=== PATIENT | female | born 1935 | race Caucasian/White ===

== ENCOUNTER 2017-03-04 12:31 | Inpatient (IN) | payer MEDICARE, BC ==
[2017-03-04] MEDS ORDERED: Sodium Chloride 0.9% 10 ML Syringe FLUSH PRN (14:27)
[2017-03-04] MEDS: Furosemide 40 MG/4 ML VIAL IVPUSH SCH (15:47)
[2017-03-04] MEDS ORDERED: Levofloxacin/Dextrose 5%-Water 250 MG in Premix Bag 1 BAG IV ONE (16:30)
[2017-03-04] MEDS: Magnesium Chloride 64 MG Tab.ER PO SCH (17:09)
[2017-03-04] MEDS: Lisinopril 5 MG Tab PO SCH (17:09)
[2017-03-04] MEDS: traZODone 50 MG Tab PO SCH (19:40)
[2017-03-04] MEDS: Montelukast 10 MG Tab PO SCH (19:41)
[2017-03-04] MEDS: TEMAZEPAM 15 MG PO SCH (19:41)
[2017-03-04] MEDS: Mirtazapine 15 MG Tab PO SCH (19:41)
[2017-03-04] MEDS ORDERED: METOCLOPRAMIDE PO SCH (20:00)
[2017-03-04] MEDS ORDERED: Enoxaparin 30 MG/0.3 ML Syringe SUBCUT SCH (20:00)
[2017-03-05] MEDS: Diltiazem 180 MG Cap.CD PO SCH (07:33)
[2017-03-05] MEDS: Potassium Chloride 10 MEQ Tab.ER PO SCH (07:33)
[2017-03-05] MEDS: Magnesium Chloride 64 MG Tab.ER PO SCH ×2 (07:36→17:27)
[2017-03-05] MEDS: Furosemide 40 MG/4 ML VIAL IVPUSH SCH ×2 (07:37→20:11)
[2017-03-05] MEDS: Aspirin 325 MG Tab.EC PO SCH (07:37)
[2017-03-05] MEDS: Lisinopril 5 MG Tab PO SCH (07:37)
[2017-03-05] MEDS: Ferrous Sulfate 324 MG Tab.EC PO SCH (07:37)
[2017-03-05] MEDS ORDERED: Non-Formulary Medication 1 Each (Magnesium Chloride [Slow-Mag] 71.5 MG) PO SCH (08:00)
[2017-03-05] MEDS ORDERED: Iopamidol 755 Mg/ML 100 ML Bottle IVPUSH ONE (11:15)
--- NOTE | 2017-03-05 12:45 | PN ---
DATE: 03/05/2017 S: Josue was admitted yesterday with a diagnosis of CHF. Her BNP came back elevated at over 8000. Lab work was for the most part reassuring other than an elevated D-dimer. She has been a little hypoxic and is requiring O2. Right leg is definitely more swollen than the left and we are going to do a CT of her chest to rule out PE. Chest x-ray did confirm CHF. She is a chronic AFib patient who has elected not to be on Coumadin after she had a hematoma in her leg. Since admission, she has diuresed about 5 or 6 pounds. She is feeling well. She was only on a calcium channel julita at the time of her admission. O: GENERAL: She is pleasant and cooperative. Appears in no distress. NECK: Supple. Veins are flat. LUNGS: Sounds are diminished again in the bases with signs of failure. CARDIAC: Tones are irregular, consistent with atrial fibrillation. ABDOMEN: Soft. She has improvement in her edema. ASSESSMENT: CONGESTIVE HEART FAILURE EXACERBATION. P: We do have an echocardiogram ordered, started her on IV Lasix, I have put her on a low-dose JESS inhibitor. She should be started on Coreg and I will wait to see how her pressures respond in the next day. Concerned about her elevated D-dimer and shortness of breath, I suspect most of her symptoms are purely from CHF but I am going to get a PE scan to rule out pulmonary emboli. If that is negative, I will duplex her lower extremities just to rule out DVT as well. For now, she is on only DVT prophylaxis with Lovenox. She did have a UTI on admit and started on IV Levaquin as well. No other changes at this time. We will follow up her panel-8 and electrolytes tomorrow with lab. BRANDIN/KADIE /[id number]
[2017-03-05] MEDS: Acetaminophen 325 MG Tab PO PRN ×2 (14:58→20:22)
[2017-03-05] MEDS ORDERED: Enoxaparin 40 MG/0.4 ML Syringe SUBCUT ONE (15:00)
[2017-03-05] MEDS ORDERED: Enoxaparin 30 MG/0.3 ML Syringe SUBCUT ONE (15:00)
[2017-03-05] MEDS ORDERED: Enoxaparin 30 MG/0.3 ML Syringe SUBCUT SCH ×2 (20:00)
[2017-03-05] MEDS: Levofloxacin/Dextrose 5%-Water 250 MG in Premix Bag 1 BAG IV SCH (20:04)
[2017-03-05] MEDS: Mirtazapine 15 MG Tab PO SCH (20:06)
[2017-03-05] MEDS: Montelukast 10 MG Tab PO SCH (20:07)
[2017-03-05] MEDS: traZODone 50 MG Tab PO SCH (20:07)
[2017-03-05] MEDS: TEMAZEPAM 15 MG PO SCH (20:11)
[2017-03-06] MEDS: Enoxaparin 40 MG/0.4 ML Syringe SUBCUT SCH ×2 (08:12→19:59)
[2017-03-06] MEDS: Furosemide 40 MG/4 ML VIAL IVPUSH SCH ×2 (08:12→19:56)
[2017-03-06] MEDS: Aspirin 325 MG Tab.EC PO SCH (08:12)
[2017-03-06] MEDS: Enoxaparin 30 MG/0.3 ML Syringe SUBCUT SCH ×2 (08:12→19:59)
[2017-03-06] MEDS: Magnesium Chloride 64 MG Tab.ER PO SCH ×2 (08:13→17:41)
[2017-03-06] MEDS: Potassium Chloride 10 MEQ Tab.ER PO SCH (08:14)
[2017-03-06] MEDS: Diltiazem 180 MG Cap.CD PO SCH (08:15)
[2017-03-06] MEDS: Lisinopril 5 MG Tab PO SCH (08:17)
[2017-03-06] MEDS: Ferrous Sulfate 324 MG Tab.EC PO SCH (08:17)
--- NOTE | 2017-03-06 13:51 | PN ---
DATE: 03/06/2017 S: Josue was admitted for CHF. She also has some clot done in her peroneals of her right lower leg, which is improving. Originally, she was down about 5 or 6 pounds when she was admitted and today it shows her up a couple of kilograms again, and I am not sure why. She had good urine outputs, and her legs look a lot better. She is feeling like she is breathing much easier. Echocardiogram was done today, and I do not have those reports. We have started her on a low- dose JESS and then go from 5 to 10 on her lisinopril. She remains on IV Lasix. At this point, I have yet to start her on a low-dose beta julita. She is on rate control with Cardizem and tomorrow, we will plan on switching her to 3.125 b.i.d. of Cardizem, and assuming the rate is stable, we will ultimately take her off the Cardizem. O: GENERAL: Today, she is a pleasant, alert, and cooperative. Looks stronger, much more pleasant and cooperative. HEENT: Remains benign. NECK: She does not have any resting JVD. LUNGS: Lung sounds remain diminished with some basilar crackles, albeit improved. CARDIAC: Tones are irregular. ABDOMEN: Soft. EXTREMITIES: She has improvement in her edema bilaterally, little bit worse on the right compared to the left. ASSESSMENT: 1. ACUTE CONGESTIVE HEART FAILURE. 2. CHRONIC ATRIAL FIBRILLATION. 3. SUPERFICIAL THROMBOSIS, RIGHT LOWER EXTREMITY. 4. URINARY TRACT INFECTION, E. COLI. P: The patient will continue on appropriate therapy. Today, we will switch her to acute, also going to start physical therapy for some strengthening. We will initiate Coumadin tomorrow and monitor INRs appropriately. We will get her routine repeat panel-8, BMP, tomorrow as well. At this time, clinically, the patient looks very good. BRANDIN/KADIE /[id number]
[2017-03-06] MEDS ORDERED: Warfarin 5 MG Tab PO SCH (14:15)
[2017-03-06] MEDS: Acetaminophen 325 MG Tab PO PRN ×2 (14:57→22:44)
[2017-03-06] MEDS: Mirtazapine 15 MG Tab PO SCH (19:59)
[2017-03-06] MEDS: TEMAZEPAM 15 MG PO SCH (19:59)
[2017-03-06] MEDS: Montelukast 10 MG Tab PO SCH (19:59)
[2017-03-06] MEDS: traZODone 50 MG Tab PO SCH (19:59)
[2017-03-06] MEDS: Levofloxacin/Dextrose 5%-Water 250 MG in Premix Bag 1 BAG IV SCH (20:02)
[2017-03-07] MEDS: Pantoprazole 40 MG Tab.CR PO SCH (06:22)
[2017-03-07] MEDS: Acetaminophen 325 MG Tab PO PRN ×2 (07:49→19:21)
[2017-03-07] MEDS: Lisinopril 10 MG Tab PO SCH (07:50)
[2017-03-07] MEDS: Potassium Chloride 10 MEQ Tab.ER PO SCH (07:50)
[2017-03-07] MEDS: Magnesium Chloride 64 MG Tab.ER PO SCH ×2 (07:50→18:04)
[2017-03-07] MEDS: Ferrous Sulfate 324 MG Tab.EC PO SCH (07:50)
[2017-03-07] MEDS: Diltiazem 180 MG Cap.CD PO SCH (07:52)
[2017-03-07] MEDS: Furosemide 40 MG/4 ML VIAL IVPUSH SCH (07:53)
[2017-03-07] MEDS: Enoxaparin 30 MG/0.3 ML Syringe SUBCUT SCH ×2 (07:57→19:23)
[2017-03-07] MEDS: Enoxaparin 40 MG/0.4 ML Syringe SUBCUT SCH ×2 (07:58→19:23)
[2017-03-07 08:01] LABS: CHLORIDE,CL 98 mEq/L (98-106); SODIUM,NA 138 mEq/L (136-145)
[2017-03-07] MEDS: Carvedilol 3.125 MG Tab PO SCH ×2 (09:57→19:22)
--- NOTE | 2017-03-07 10:13 | PN ---
DATE: 03/07/2017 S: Josue is an 81-year-old female who was admitted for CHF on 03/04/2017. She had a blood clot also in peroneals of the right lower leg. She was also determined to have a UTI as well. She has been improving quite well. Initial weight on admission was 172 pounds with a current weight of 163 pounds. She has been having a good urine output with much improvement in regard to edema in the lower extremities as well. She states she feels like she is gradually improving. She recently has had an echocardiogram done yesterday. She has been on IV Lasix during this time, 40 mg twice a day. O: VITAL SIGNS: Blood pressure 136/84, O2 is 92% on room air, respiratory rate is 16, and temp is 97.2 with a pulse of 60. GENERAL: A pleasant cooperative female. She is resting comfortably. Does not appear to be in any distress at this point in time. She is cooperative and answering all questions appropriately. HEENT: Grossly unremarkable. LUNGS: Fairly clear to auscultation. She did have some bibasilar crackles, however, no wheezing or rhonchi noted. CARDIAC: Regular rate. Irregular rhythm. No murmur is noted. ABDOMEN: Soft. Bowel sounds are present. Normoactive. No organomegaly. No guarding or rigidity. EXTREMITIES: Scant pitting pedal edema noted in the right ankle/foot with minimal swelling noted in the left lower extremity, much improved. ASSESSMENT: 1. ACUTE CONGESTIVE HEART FAILURE. 2. CHRONIC ATRIAL FIBRILLATION. 3. SUPERFICIAL THROMBOSIS OF RIGHT LOWER EXTREMITY. 4. URINARY TRACT INFECTION WITH E. COLI. P: We will go ahead and start Coreg 3.125 mg twice a day at this point in time. We will also discontinue her IV Lasix and start her on 40 mg orally daily. She is having daily INR secondary to being initiated on Coumadin use. We will closely monitor her blood pressures as well make sure she is tolerating the Coreg with the Cardizem. I will repeat her basic metabolic panel and magnesium in the morning as her laboratory data this morning did show a potassium to be down to 3.4 from 3.8 and creatinine is 1.1 which has been stable, proBNP was 3022 today down from 8000 on 03/04/2017. I did explain to Josue current treatment plan. She did verbalize complete understanding. LUDWIG/KADIE /[id number]
[2017-03-07] MEDS ORDERED: Warfarin 5 MG Tab PO SCH (12:00)
[2017-03-07] MEDS: Warfarin 5 MG Tab PO SCH (12:33)
[2017-03-07] MEDS: Montelukast 10 MG Tab PO SCH (19:22)
[2017-03-07] MEDS: traZODone 50 MG Tab PO SCH (19:22)
[2017-03-07] MEDS: TEMAZEPAM 15 MG PO SCH (19:22)
[2017-03-07] MEDS: Mirtazapine 15 MG Tab PO SCH (19:23)
[2017-03-07] MEDS: Levofloxacin/Dextrose 5%-Water 250 MG in Premix Bag 1 BAG IV SCH (19:23)
[2017-03-08] MEDS: Acetaminophen 325 MG Tab PO PRN ×2 (05:32→19:58)
[2017-03-08] MEDS: Pantoprazole 40 MG Tab.CR PO SCH (06:45)
[2017-03-08] MEDS: Carvedilol 3.125 MG Tab PO SCH ×2 (08:24→19:56)
[2017-03-08] MEDS: Furosemide 40 MG Tab PO SCH (08:25)
[2017-03-08] MEDS: Magnesium Chloride 64 MG Tab.ER PO SCH ×2 (08:25→16:57)
[2017-03-08] MEDS: Ferrous Sulfate 324 MG Tab.EC PO SCH (08:25)
[2017-03-08] MEDS: Potassium Chloride 10 MEQ Tab.ER PO SCH (08:25)
[2017-03-08] MEDS: Lisinopril 10 MG Tab PO SCH (08:25)
[2017-03-08] MEDS: Diltiazem 180 MG Cap.CD PO SCH (08:25)
[2017-03-08] MEDS: Enoxaparin 30 MG/0.3 ML Syringe SUBCUT SCH ×2 (08:26→19:57)
[2017-03-08] MEDS: Enoxaparin 40 MG/0.4 ML Syringe SUBCUT SCH ×2 (08:26→19:57)
--- NOTE | 2017-03-08 10:40 | PCM.PN ---
- General Info Date of Service: 03/08/17 (Patient sitting up in chair with eyes closed resting , Easily arousable. Denies any SOB or pain at this time. Bilateral breath sound essentially clear but deminished. 2+ edema noted of lower extremeties. Patient being treated o rCF, and DVT. No distress noted at this time, will continue to montor closely) Admission Dx/Problem (Free Text): CHF, DVT,SOB Functional Status: Reports: pain controlled - Review of Systems General: Reports: No Symptoms HEENT: Reports: no symptoms Pulmonary: Reports: other Cardiovascular: Reports: No Symptoms Gastrointestinal: Reports: No symptoms Genitourinary: Reports: no symptoms Musculoskeletal: Reports: no symptoms Skin: Reports: no symptoms Neurological: Reports: No Symptoms Psychiatric: Reports: no symptoms Systems Review Comment:: Has significant lower extremity edema. - Patient Data Vitals - most recent: Last Vital Signs Temp 96.1 F 03/08/17 04:00 Pulse 89 03/08/17 08:24 Resp 18 03/08/17 04:00 BP 138/90 03/08/17 08:25 Pulse Ox 92 L 03/08/17 04:00 Weight - most recent: 165 lb 9.6 oz I&O - last 24 hours: Intake & Output 03/07/17 03/08/17 03/08/17 22:59 06:59 14:59 Intake Total 750 1050 Output Total 1900 750 Balance -1150 300 Lab Results last 24 hrs: Laboratory Results - last 24 hr 03/08/17 03/08/17 Range/Units 07:25 07:25 PT 11.0 (9.7-12.3) SEC INR 1.02 (0.92-1.18) Sodium 136 (136-145) mEq/L Potassium 3.4 L (3.5-5.0) mEq/L Chloride 97 L (98-106) mEq/L Carbon Dioxide 34 H (21-32) mmol/L BUN 19 H (7-18) mg/dL Creatinine 1.0 (0.6-1.0) mg/dL Est Cr Clr Drug Dosing 42.00 mL/min Estimated GFR (MDRD) 53 L (>=60) mL/min Glucose 117 H (75-99) mg/dL Calcium 9.0 (8.4-10.1) mg/dL Magnesium 1.5 L (1.8-2.4) mg/dL Med Orders - Current: Current Medications Acetaminophen (Tylenol) 650 mg PO Q4H PRN PRN Reason: Pain (Mild 1-3)/fever Last Admin: 03/08/17 05:32 Dose: 650 mg Carvedilol (Coreg) 3.125 mg PO BID [facility] Last Admin: 03/08/17 08:24 Dose: 3.125 mg Diltiazem HCl (Cardizem Cd) 180 mg PO DAILY [facility] Last Admin: 03/08/17 08:25 Dose: 180 mg Enoxaparin Sodium (Lovenox) 30 mg SUBCUT Q12H [facility] Last Admin: 03/08/17 08:26 Dose: 30 mg Enoxaparin Sodium (Lovenox) 40 mg SUBCUT Q12H [facility] Last Admin: 03/08/17 08:26 Dose: 40 mg Ferrous Sulfate (Ferrous Sulfate) 324 mg PO DAILY [facility] Last Admin: 03/08/17 08:25 Dose: 324 mg Furosemide (Lasix) 40 mg PO DAILY [facility] Last Admin: 03/08/17 08:25 Dose: 40 mg Levofloxacin/Dextrose 250 mg/ (Premix) 50 mls @ 50 mls/hr IV Q24H [facility] Last Admin: 03/07/17 19:23 Dose: 50 mls/hr Lisinopril (Prinivil) 10 mg PO DAILY [facility] Last Admin: 03/08/17 08:25 Dose: 10 mg Magnesium Chloride (Mag-64) 64 mg PO BIDMEALS [facility] Last Admin: 03/08/17 08:25 Dose: 64 mg Mirtazapine (Remeron) 15 mg PO BEDTIME [facility] Last Admin: 03/07/17 19:23 Dose: 15 mg Montelukast Sodium (Singulair) 10 mg PO BEDTIME [facility] Last Admin: 03/07/17 19:22 Dose: 10 mg Pt On Lovenox And Warfarin--Validate If Can Dc Lovenox 1 each .XX DAILY [facility] Pantoprazole Sodium (Protonix) 40 mg PO DAILY@0700 [facility] Last Admin: 03/08/17 06:45 Dose: 40 mg Potassium Chloride (Klor-Con 10) 20 meq PO DAILY [facility] Last Admin: 03/08/17 08:25 Dose: 20 meq Senna/Docusate Sodium (Senna Plus) 1 tab PO BID [facility] Last Admin: 03/08/17 08:25 Dose: 1 tab Sodium Chloride (Saline Flush) 10 ml FLUSH ASDIRECTED PRN PRN Reason: Keep Vein Open Temazepam (Restoril) 15 mg PO 2230 [facility] Trazodone HCl (Trazodone) 25 mg PO BEDTIME [facility] Last Admin: 03/07/17 19:22 Dose: 25 mg Warfarin Sodium (Coumadin) 5 mg PO DAILY@1200 [facility] Last Admin: 03/07/17 12:33 Dose: 5 mg Discontinued Medications Aspirin (Ecotrin) 325 mg PO DAILY [facility] Last Admin: 03/06/17 08:12 Dose: 325 mg Enoxaparin Sodium (Lovenox) 30 mg SUBCUT Q24H [facility] Last Admin: 03/04/17 19:40 Dose: 30 mg Enoxaparin Sodium (Lovenox) 80 mg SUBCUT BID [facility] Enoxaparin Sodium (Lovenox) 30 mg SUBCUT ONETIME ONE Stop: 03/05/17 15:01 Last Admin: 03/05/17 14:57 Dose: 30 mg Enoxaparin Sodium (Lovenox) 40 mg SUBCUT ONETIME ONE Stop: 03/05/17 15:01 Last Admin: 03/05/17 14:57 Dose: 40 mg Furosemide (Lasix) 40 mg IVPUSH BIDDIURETIC [facility] Last Admin: 03/05/17 07:37 Dose: 40 mg Furosemide (Lasix) 40 mg IVPUSH BID [facility] Last Admin: 03/07/17 07:53 Dose: 40 mg Levofloxacin/Dextrose 250 mg/ (Premix) 50 mls @ 50 mls/hr IV ONETIME ONE Stop: 03/04/17 17:29 Last Admin: 03/04/17 17:08 Dose: 50 mls/hr Iopamidol (Isovue-370 (76%)) 100 ml IVPUSH ONETIME ONE Stop: 03/05/17 11:16 Last Admin: 03/05/17 11:16 Dose: 100 ml Lisinopril (Prinivil) 5 mg PO DAILY [facility] Last Admin: 03/06/17 08:17 Dose: 5 mg Non-Formulary Medication (Metoclopramide [Reglan]) 10 tab PO BID [facility] Non-Formulary Medication (Magnesium Chloride [Slow-Mag]) 71.5 mg PO DAILY [facility] Temazepam (Restoril) 15 mg PO BEDTIME [facility] Last Admin: 03/07/17 19:22 Dose: 15 mg Warfarin Sodium (Coumadin) 5 mg PO DAILY@1200 [facility] - Problem List Review Problem List Initiated/Reviewed/Updated: Yes
[2017-03-08] MEDS: Warfarin 5 MG Tab PO SCH (11:51)
[2017-03-08] MEDS: Ondansetron 4 MG Tab.DIS PO PRN (12:18)
[2017-03-08] MEDS: Montelukast 10 MG Tab PO SCH (19:56)
[2017-03-08] MEDS: Mirtazapine 15 MG Tab PO SCH (19:57)
[2017-03-08] MEDS: traZODone 50 MG Tab PO SCH (19:57)
[2017-03-08] MEDS: Levofloxacin/Dextrose 5%-Water 250 MG in Premix Bag 1 BAG IV SCH (19:58)
[2017-03-08] MEDS: Temazepam 15 MG Cap PO SCH (22:40)
[2017-03-09] MEDS: Pantoprazole 40 MG Tab.CR PO SCH (06:37)
[2017-03-09] MEDS: Enoxaparin 30 MG/0.3 ML Syringe SUBCUT SCH ×2 (08:07→19:23)
[2017-03-09] MEDS: Enoxaparin 40 MG/0.4 ML Syringe SUBCUT SCH ×2 (08:07→19:23)
[2017-03-09] MEDS: Carvedilol 3.125 MG Tab PO SCH ×2 (08:08→19:21)
[2017-03-09] MEDS: Magnesium Chloride 64 MG Tab.ER PO SCH ×2 (08:08→17:43)
[2017-03-09] MEDS: Diltiazem 180 MG Cap.CD PO SCH (08:08)
[2017-03-09] MEDS: Potassium Chloride 10 MEQ Tab.ER PO SCH (08:08)
[2017-03-09] MEDS: Lisinopril 10 MG Tab PO SCH (08:09)
[2017-03-09] MEDS: Ferrous Sulfate 324 MG Tab.EC PO SCH (08:09)
[2017-03-09] MEDS: Furosemide 40 MG Tab PO SCH (08:09)
[2017-03-09] MEDS: [UNRECOGNIZED DRUG - REMARK] SCH (08:11)
[2017-03-09] MEDS: Ondansetron 4 MG Tab.DIS PO PRN (08:57)
--- NOTE | 2017-03-09 12:13 | PCM.PN ---
- General Info Date of Service: 03/09/17 Admission Dx/Problem (Free Text): chf Functional Status: Reports: pain controlled - Review of Systems General: Reports: No Symptoms HEENT: Reports: no symptoms Pulmonary: Reports: shortness of breath Cardiovascular: Reports: No Symptoms Gastrointestinal: Reports: No symptoms Musculoskeletal: Reports: no symptoms Skin: Reports: no symptoms Neurological: Reports: No Symptoms Psychiatric: Reports: no symptoms Systems Review Comment:: Sitting up in chair at this time. Denies pain, but has SOB with exertion. Labs are OK, vs stable no distress noted. Will continue to monitor closely. - Patient Data Vitals - most recent: Last Vital Signs Temp 98.1 F 03/09/17 11:51 Pulse 96 03/09/17 11:51 Resp 16 03/09/17 11:51 BP 101/50 L 03/09/17 11:51 Pulse Ox 94 L 03/09/17 11:51 Weight - most recent: 162 lb 9.6 oz I&O - last 24 hours: Intake & Output 03/08/17 03/09/17 03/09/17 22:59 06:59 14:59 Intake Total 300 300 Output Total 600 425 Balance -300 -425 300 Lab Results last 24 hrs: Laboratory Results - last 24 hr 03/09/17 03/09/17 Range/Units 07:15 07:15 PT 12.4 H (9.7-12.3) SEC INR 1.14 (0.92-1.18) Sodium 135 L (136-145) mEq/L Potassium 4.2 D (3.5-5.0) mEq/L Chloride 97 L (98-106) mEq/L Carbon Dioxide 35 H (21-32) mmol/L BUN 18 (7-18) mg/dL Creatinine 1.0 (0.6-1.0) mg/dL Est Cr Clr Drug Dosing 42.00 mL/min Estimated GFR (MDRD) 53 L (>=60) mL/min Glucose 115 H (75-99) mg/dL Calcium 9.0 (8.4-10.1) mg/dL Med Orders - Current: Current Medications Acetaminophen (Tylenol) 650 mg PO Q4H PRN PRN Reason: Pain (Mild 1-3)/fever Last Admin: 03/08/17 19:58 Dose: 650 mg Carvedilol (Coreg) 3.125 mg PO BID [facility] Last Admin: 03/09/17 08:08 Dose: 3.125 mg Diltiazem HCl (Cardizem Cd) 180 mg PO DAILY [facility] Last Admin: 03/09/17 08:08 Dose: 180 mg Enoxaparin Sodium (Lovenox) 30 mg SUBCUT Q12H [facility] Last Admin: 03/09/17 08:07 Dose: 30 mg Enoxaparin Sodium (Lovenox) 40 mg SUBCUT Q12H [facility] Last Admin: 03/09/17 08:07 Dose: 40 mg Ferrous Sulfate (Ferrous Sulfate) 324 mg PO DAILY [facility] Last Admin: 03/09/17 08:09 Dose: 324 mg Furosemide (Lasix) 40 mg PO DAILY [facility] Last Admin: 03/09/17 08:09 Dose: 40 mg Levofloxacin/Dextrose 250 mg/ (Premix) 50 mls @ 50 mls/hr IV Q24H [facility] Last Admin: 03/08/17 19:58 Dose: 50 mls/hr Lisinopril (Prinivil) 10 mg PO DAILY [facility] Last Admin: 03/09/17 08:09 Dose: 10 mg Magnesium Chloride (Mag-64) 64 mg PO BIDMEALS [facility] Last Admin: 03/09/17 08:08 Dose: 64 mg Mirtazapine (Remeron) 15 mg PO BEDTIME [facility] Last Admin: 03/08/17 19:57 Dose: 15 mg Montelukast Sodium (Singulair) 10 mg PO BEDTIME [facility] Last Admin: 03/08/17 19:56 Dose: 10 mg Pt On Lovenox And Warfarin--Validate If Can Dc Lovenox 1 each .XX DAILY [facility] Last Admin: 03/09/17 08:11 Dose: Not Given Ondansetron HCl (Zofran Odt) 4 mg PO Q4H PRN PRN Reason: Nausea/Vomiting Last Admin: 03/09/17 08:57 Dose: 4 mg Pantoprazole Sodium (Protonix) 40 mg PO DAILY@0700 [facility] Last Admin: 03/09/17 06:37 Dose: 40 mg Potassium Chloride (Klor-Con 10) 20 meq PO DAILY [facility] Last Admin: 03/09/17 08:08 Dose: 20 meq Senna/Docusate Sodium (Senna Plus) 1 tab PO BID [facility] Last Admin: 03/09/17 08:08 Dose: 1 tab Sodium Chloride (Saline Flush) 10 ml FLUSH ASDIRECTED PRN PRN Reason: Keep Vein Open Temazepam (Restoril) 15 mg PO 2230 [facility] Last Admin: 03/08/17 22:40 Dose: 15 mg Trazodone HCl (Trazodone) 25 mg PO BEDTIME [facility] Last Admin: 03/08/17 19:57 Dose: 25 mg Warfarin Sodium (Coumadin) 5 mg PO DAILY@1200 [facility] Last Admin: 03/08/17 11:51 Dose: 5 mg Discontinued Medications Aspirin (Ecotrin) 325 mg PO DAILY [facility] Last Admin: 03/06/17 08:12 Dose: 325 mg Enoxaparin Sodium (Lovenox) 30 mg SUBCUT Q24H [facility] Last Admin: 03/04/17 19:40 Dose: 30 mg Enoxaparin Sodium (Lovenox) 80 mg SUBCUT BID [facility] Enoxaparin Sodium (Lovenox) 30 mg SUBCUT ONETIME ONE Stop: 03/05/17 15:01 Last Admin: 03/05/17 14:57 Dose: 30 mg Enoxaparin Sodium (Lovenox) 40 mg SUBCUT ONETIME ONE Stop: 03/05/17 15:01 Last Admin: 03/05/17 14:57 Dose: 40 mg Furosemide (Lasix) 40 mg IVPUSH BIDDIURETIC [facility] Last Admin: 03/05/17 07:37 Dose: 40 mg Furosemide (Lasix) 40 mg IVPUSH BID [facility] Last Admin: 03/07/17 07:53 Dose: 40 mg Levofloxacin/Dextrose 250 mg/ (Premix) 50 mls @ 50 mls/hr IV ONETIME ONE Stop: 03/04/17 17:29 Last Admin: 03/04/17 17:08 Dose: 50 mls/hr Iopamidol (Isovue-370 (76%)) 100 ml IVPUSH ONETIME ONE Stop: 03/05/17 11:16 Last Admin: 03/05/17 11:16 Dose: 100 ml Lisinopril (Prinivil) 5 mg PO DAILY [facility] Last Admin: 03/06/17 08:17 Dose: 5 mg Non-Formulary Medication (Metoclopramide [Reglan]) 10 tab PO BID [facility] Non-Formulary Medication (Magnesium Chloride [Slow-Mag]) 71.5 mg PO DAILY [facility] Temazepam (Restoril) 15 mg PO BEDTIME [facility] Last Admin: 03/07/17 19:22 Dose: 15 mg Warfarin Sodium (Coumadin) 5 mg PO DAILY@1200 [facility] - Problem List Review Problem List Initiated/Reviewed/Updated: Yes - My Orders Last 24 Hours: My Active Orders 03/08/17 12:12 Ondansetron [Zofran ODT] 4 mg PO Q4H PRN 03/11/17 05:11 BMP [BASIC METABOLIC PANEL,BMP] [CHEM] AM
[2017-03-09] MEDS: Warfarin 5 MG Tab PO SCH (12:17)
[2017-03-09] MEDS: Acetaminophen 325 MG Tab PO PRN (17:45)
[2017-03-09] MEDS: Mirtazapine 15 MG Tab PO SCH (19:21)
[2017-03-09] MEDS: traZODone 50 MG Tab PO SCH (19:22)
[2017-03-09] MEDS: Montelukast 10 MG Tab PO SCH (19:22)
[2017-03-09] MEDS: Levofloxacin/Dextrose 5%-Water 250 MG in Premix Bag 1 BAG IV SCH (19:23)
[2017-03-09] MEDS: Temazepam 15 MG Cap PO SCH (22:45)
[2017-03-10] MEDS: Pantoprazole 40 MG Tab.CR PO SCH (06:57)
[2017-03-10] MEDS: Ferrous Sulfate 324 MG Tab.EC PO SCH (07:51)
[2017-03-10] MEDS: Lisinopril 10 MG Tab PO SCH (07:51)
[2017-03-10] MEDS: Furosemide 40 MG Tab PO SCH (07:51)
[2017-03-10] MEDS: Carvedilol 3.125 MG Tab PO SCH (07:51)
[2017-03-10] MEDS: Diltiazem 180 MG Cap.CD PO SCH (07:51)
[2017-03-10] MEDS: Magnesium Chloride 64 MG Tab.ER PO SCH (07:51)
[2017-03-10] MEDS: Potassium Chloride 10 MEQ Tab.ER PO SCH (07:51)
[2017-03-10 07:52] VITALS: BP 124/79
[2017-03-10] MEDS: Acetaminophen 325 MG Tab PO PRN (07:55)
[2017-03-10] MEDS: [UNRECOGNIZED DRUG - REMARK] SCH (08:44)
[2017-03-10] MEDS: Enoxaparin 30 MG/0.3 ML Syringe SUBCUT SCH (08:48)
[2017-03-10] MEDS: Enoxaparin 40 MG/0.4 ML Syringe SUBCUT SCH (08:48)
--- NOTE | 2017-03-10 10:40 | PCM.DCSUM1 ---
Discharge Summary - Hospital Course Free Text/Narrative:: Patient to be discharged from inpatient care and [facility] PT eval and treatment for strengthening. - Discharge Data Discharge Date: 03/10/17 Discharge Disposition: DC/Tfer W/I Hosp To [facility] 62 Condition: Good - Patient Summary/Data Consults: Consultations 03/06/17 12:32 Consult to Physical Therapy [PT Evaluation and Treatment] [CONS] Routine - Discharge Plan Home Medications: Home Meds Aspirin 325 mg PO DAILY 01/09/15 [History] Ca Carbonate/Vitamin D3/Vit K [Calcium + D Soft Chewable Tab] 2 tab PO DAILY [History] Mirtazapine [Remeron] 15 mg PO BEDTIME 01/09/15 [History] Multivitamins [Tab-A-Tigist] 1 tab PO DAILY 01/09/15 [History] Naproxen Sodium [Aleve] 2 tab PO BID PRN 01/09/15 [History] Sennosides/Docusate Sodium [Cvs Stool Softener-Laxative Tb] 100 mg PO BID [History] Metoclopramide [Reglan] 10 tab PO BID 06/02/15 [History] Diltiazem [Cardizem CD] 180 mg PO DAILY cap.cd 01/21/16 [Rx] Ferrous Sulfate 325 mg PO DAILY 10/09/16 [History] Temazepam [Restoril] 15 mg PO BEDTIME 10/09/16 [History] traZODone 25 mg PO BEDTIME 10/09/16 [History] Cranberry 400 mg PO BID 03/04/17 [History] Fish Oil/DHA/EPA [Fish Oil 1,200 MG] 1 each PO BID 03/04/17 [History] Magnesium Chloride [Slow-Mag] 71.5 mg PO DAILY 03/04/17 [History] Montelukast [Singulair] 10 mg PO BEDTIME 03/04/17 [History] Potassium Chloride [Klor-Con 10] 20 meq PO DAILY 03/04/17 [History] Torsemide 20 mg PO 03/04/17 [History] - Patient Data Vitals - Most Recent: Last Vital Signs Temp 97.0 F 03/10/17 08:00 Pulse 88 03/10/17 08:00 Resp 20 03/10/17 08:00 BP 124/79 03/10/17 08:00 Pulse Ox 91 L 03/10/17 08:00 Weight - Most Recent: 165 lb 1.6 oz I&O - Last 24 hours: Intake & Output 03/09/17 03/10/17 03/10/17 22:59 06:59 14:59 Intake Total 1000 550 Output Total 450 200 Balance 550 350 Lab Results - Last 24 hrs: Laboratory Results - last 24 hr 03/10/17 03/10/17 Range/Units 07:30 07:30 PT 14.9 H (9.7-12.3) SEC INR 1.37 H (0.92-1.18) Sodium 133 L (136-145) mEq/L Potassium 4.1 (3.5-5.0) mEq/L Chloride 96 L (98-106) mEq/L Carbon Dioxide 35 H (21-32) mmol/L BUN 17 (7-18) mg/dL Creatinine 1.0 (0.6-1.0) mg/dL Est Cr Clr Drug Dosing 42.00 mL/min Estimated GFR (MDRD) 53 L (>=60) mL/min Glucose 112 H (75-99) mg/dL Calcium 9.0 (8.4-10.1) mg/dL Med Orders - Current: Current Medications Acetaminophen (Tylenol) 650 mg PO Q4H PRN PRN Reason: Pain (Mild 1-3)/fever Last Admin: 03/10/17 07:55 Dose: 650 mg Carvedilol (Coreg) 3.125 mg PO BID [facility] Last Admin: 03/10/17 07:51 Dose: 3.125 mg Diltiazem HCl (Cardizem Cd) 180 mg PO DAILY [facility] Last Admin: 03/10/17 07:51 Dose: 180 mg Enoxaparin Sodium (Lovenox) 30 mg SUBCUT Q12H [facility] Last Admin: 03/10/17 08:48 Dose: 30 mg Enoxaparin Sodium (Lovenox) 40 mg SUBCUT Q12H [facility] Last Admin: 03/10/17 08:48 Dose: 40 mg Ferrous Sulfate (Ferrous Sulfate) 324 mg PO DAILY [facility] Last Admin: 03/10/17 07:51 Dose: 324 mg Furosemide (Lasix) 40 mg PO DAILY [facility] Last Admin: 03/10/17 07:51 Dose: 40 mg Levofloxacin/Dextrose 250 mg/ (Premix) 50 mls @ 50 mls/hr IV Q24H [facility] Last Admin: 03/09/17 19:23 Dose: 50 mls/hr Lisinopril (Prinivil) 10 mg PO DAILY [facility] Last Admin: 03/10/17 07:51 Dose: 10 mg Magnesium Chloride (Mag-64) 64 mg PO BIDMEALS [facility] Last Admin: 03/10/17 07:51 Dose: 64 mg Mirtazapine (Remeron) 15 mg PO BEDTIME [facility] Last Admin: 03/09/17 19:21 Dose: 15 mg Montelukast Sodium (Singulair) 10 mg PO BEDTIME [facility] Last Admin: 03/09/17 19:22 Dose: 10 mg Pt On Lovenox And Warfarin--Validate If Can Dc Lovenox 1 each .XX DAILY [facility] Last Admin: 03/10/17 08:44 Dose: Not Given Ondansetron HCl (Zofran Odt) 4 mg PO Q4H PRN PRN Reason: Nausea/Vomiting Last Admin: 03/09/17 08:57 Dose: 4 mg Pantoprazole Sodium (Protonix) 40 mg PO DAILY@0700 [facility] Last Admin: 03/10/17 06:57 Dose: 40 mg Potassium Chloride (Klor-Con 10) 20 meq PO DAILY [facility] Last Admin: 03/10/17 07:51 Dose: 20 meq Senna/Docusate Sodium (Senna Plus) 1 tab PO BID [facility] Last Admin: 03/10/17 07:51 Dose: 1 tab Sodium Chloride (Saline Flush) 10 ml FLUSH ASDIRECTED PRN PRN Reason: Keep Vein Open Temazepam (Restoril) 15 mg PO 2230 [facility] Last Admin: 03/09/17 22:45 Dose: 15 mg Trazodone HCl (Trazodone) 25 mg PO BEDTIME [facility] Last Admin: 03/09/17 19:22 Dose: 25 mg Warfarin Sodium (Coumadin) 5 mg PO DAILY@1200 [facility] Last Admin: 03/09/17 12:17 Dose: 5 mg Discontinued Medications Aspirin (Ecotrin) 325 mg PO DAILY [facility] Last Admin: 03/06/17 08:12 Dose: 325 mg Enoxaparin Sodium (Lovenox) 30 mg SUBCUT Q24H [facility] Last Admin: 03/04/17 19:40 Dose: 30 mg Enoxaparin Sodium (Lovenox) 80 mg SUBCUT BID [facility] Enoxaparin Sodium (Lovenox) 30 mg SUBCUT ONETIME ONE Stop: 03/05/17 15:01 Last Admin: 03/05/17 14:57 Dose: 30 mg Enoxaparin Sodium (Lovenox) 40 mg SUBCUT ONETIME ONE Stop: 03/05/17 15:01 Last Admin: 03/05/17 14:57 Dose: 40 mg Furosemide (Lasix) 40 mg IVPUSH BIDDIURETIC [facility] Last Admin: 03/05/17 07:37 Dose: 40 mg Furosemide (Lasix) 40 mg IVPUSH BID [facility] Last Admin: 03/07/17 07:53 Dose: 40 mg Levofloxacin/Dextrose 250 mg/ (Premix) 50 mls @ 50 mls/hr IV ONETIME ONE Stop: 03/04/17 17:29 Last Admin: 03/04/17 17:08 Dose: 50 mls/hr Iopamidol (Isovue-370 (76%)) 100 ml IVPUSH ONETIME ONE Stop: 03/05/17 11:16 Last Admin: 03/05/17 11:16 Dose: 100 ml Lisinopril (Prinivil) 5 mg PO DAILY [facility] Last Admin: 03/06/17 08:17 Dose: 5 mg Non-Formulary Medication (Metoclopramide [Reglan]) 10 tab PO BID [facility] Non-Formulary Medication (Magnesium Chloride [Slow-Mag]) 71.5 mg PO DAILY [facility] Temazepam (Restoril) 15 mg PO BEDTIME [facility] Last Admin: 03/07/17 19:22 Dose: 15 mg Warfarin Sodium (Coumadin) 5 mg PO DAILY@1200 [facility] *Q Meaningful Use (DIS) - VTE *Q VTE Criteria *Q: - Stroke *Q Stroke Criteria *Q: - AMI *Q AMI Criteria *Q:
== END 2017-03-10 10:45 | disposition swing bed (61) | DRG 292 ==
LOC: CC.MS 12:31 → UNDOADMOB 14:17 → CC.MS 14:27 → OBSVTOIN 03-06 12:31
PROVIDERS: ADMIT Family Medicine; ATTEND Family Medicine
PROC: 0T2BX0Z Change Drainage Device in Bladder, External Approach (ICD-10-PCS; principal; 2017-03-04)
DX: I50.9 Heart failure, unspecified (principal); I10 Essential (primary) hypertension; I82.811 Embolism and thrombosis of superficial veins of right lower extremity; E11.9 Type 2 diabetes mellitus without complications; G47.33 Obstructive sleep apnea (adult) (pediatric); N39.0 Urinary tract infection, site not specified; B96.20 Unspecified Escherichia coli [E. coli] as the cause of diseases classified elsewhere; I48.0 Paroxysmal atrial fibrillation; Z88.0 Allergy status to penicillin; Z88.8 Allergy status to other drugs, medicaments and biological substances; Z79.82 Long term (current) use of aspirin; Z79.899 Other long term (current) drug therapy
CPT/HCPCS: 36415 ×2; 51702; 71020; 71275; 80048; 80053; 81001; 83735; 83880; 84484; 85025; 85379; 85610; 87086; 87088; 93005; 93010; 93306; 96365; 96366; 96372 ×3; 96375; 96376 ×2; 99220; 99226; A9270 ×27; G0365; G0378; J1650 ×5; J1940 ×4; J1956 ×2; Q9967 ×2; 87186; 97110-GP; 97161-GP

== ENCOUNTER 2017-03-10 10:45 | Inpatient (IN) | payer MEDICARE, BC ==
[2017-03-10] MEDS ORDERED: Ondansetron 4 MG Tab.DIS PO PRN (11:00)
[2017-03-10] MEDS ORDERED: NAPROXEN SODIUM PO PRN (11:09)
[2017-03-10] MEDS: Warfarin 5 MG Tab PO SCH (12:21)
[2017-03-10] MEDS ORDERED: Carvedilol 3.125 MG Tab PO SCH (13:15)
[2017-03-10] MEDS: Loperamide 2 MG Cap PO PRN (13:44)
[2017-03-10] MEDS: Magnesium Chloride 64 MG Tab.ER PO SCH (16:33)
[2017-03-10] MEDS ORDERED: Pantoprazole 40 MG Tab.CR PO SCH (17:00)
[2017-03-10] MEDS: Enoxaparin 30 MG/0.3 ML Syringe SUBCUT SCH (19:24)
[2017-03-10] MEDS: Enoxaparin 40 MG/0.4 ML Syringe SUBCUT SCH (19:24)
[2017-03-10] MEDS: traZODone 50 MG Tab PO SCH (19:25)
[2017-03-10] MEDS: Levofloxacin/Dextrose 5%-Water 250 MG in Premix Bag 1 BAG IV SCH (19:25)
[2017-03-10] MEDS: Montelukast 10 MG Tab PO SCH (19:25)
[2017-03-10] MEDS: Mirtazapine 15 MG Tab PO SCH (19:25)
[2017-03-10] MEDS: Carvedilol 3.125 MG Tab PO SCH (19:25)
[2017-03-10] MEDS ORDERED: EPA PO SCH (20:00)
[2017-03-10] MEDS ORDERED: Non-Formulary Medication 1 Each (Cranberry [Cranberry] 400 MG) PO SCH (20:00)
[2017-03-10] MEDS ORDERED: Temazepam 15 MG Cap PO SCH (20:00)
[2017-03-10] MEDS ORDERED: FISH OIL PO SCH (20:00)
[2017-03-10] MEDS ORDERED: DHA PO SCH (20:00)
[2017-03-10] MEDS ORDERED: METOCLOPRAMIDE PO SCH (20:00)
[2017-03-10] MEDS: Temazepam 15 MG Cap PO SCH (22:14)
[2017-03-10] MEDS: Acetaminophen 325 MG Tab PO PRN (22:20)
[2017-03-11] MEDS: Acetaminophen 325 MG Tab PO PRN ×4 (03:24→22:14)
[2017-03-11] MEDS ORDERED: Pantoprazole 40 MG Tab.CR PO SCH ×2 (07:00→08:00)
[2017-03-11] MEDS: Ferrous Sulfate 324 MG Tab.EC PO SCH (07:41)
[2017-03-11] MEDS: Potassium Chloride 10 MEQ Tab.ER PO SCH (07:41)
[2017-03-11] MEDS: Pantoprazole 40 MG Tab.CR PO SCH (07:42)
[2017-03-11] MEDS: Multivitamin Tab PO SCH (07:42)
[2017-03-11] MEDS: Furosemide 40 MG Tab PO SCH (07:42)
[2017-03-11] MEDS: Calcium Carbonate/Vitamin D3 1250 MG-200 Unit Tab PO SCH (07:42)
[2017-03-11] MEDS: Diltiazem 180 MG Cap.CD PO SCH (07:44)
[2017-03-11] MEDS: Magnesium Chloride 64 MG Tab.ER PO SCH ×2 (07:44→17:35)
[2017-03-11] MEDS: Enoxaparin 40 MG/0.4 ML Syringe SUBCUT SCH ×2 (07:49→20:51)
[2017-03-11] MEDS: Enoxaparin 30 MG/0.3 ML Syringe SUBCUT SCH ×2 (07:50→20:52)
[2017-03-11] MEDS ORDERED: Magnesium Chloride 64 MG Tab.ER PO SCH (08:00)
[2017-03-11] MEDS ORDERED: Aspirin 325 MG Tab PO SCH (08:00)
[2017-03-11] MEDS: Lisinopril 10 MG Tab PO SCH (08:33)
[2017-03-11] MEDS: Carvedilol 3.125 MG Tab PO SCH ×2 (08:33→20:50)
[2017-03-11] MEDS: Warfarin 5 MG Tab PO SCH (12:00)
[2017-03-11] MEDS: traZODone 50 MG Tab PO SCH (20:50)
[2017-03-11] MEDS: Montelukast 10 MG Tab PO SCH (20:50)
[2017-03-11] MEDS: Mirtazapine 15 MG Tab PO SCH (20:51)
[2017-03-11] MEDS: Levofloxacin/Dextrose 5%-Water 250 MG in Premix Bag 1 BAG IV SCH ×2 (20:51→20:52)
[2017-03-11] MEDS: Temazepam 15 MG Cap PO SCH (22:15)
[2017-03-12] MEDS: Acetaminophen 325 MG Tab PO PRN ×3 (04:25→22:30)
[2017-03-12] MEDS: Pantoprazole 40 MG Tab.CR PO SCH (06:44)
[2017-03-12] MEDS: Ferrous Sulfate 324 MG Tab.EC PO SCH (07:42)
[2017-03-12] MEDS: Multivitamin Tab PO SCH (07:42)
[2017-03-12] MEDS: Potassium Chloride 10 MEQ Tab.ER PO SCH (07:42)
[2017-03-12] MEDS: Diltiazem 180 MG Cap.CD PO SCH (07:44)
[2017-03-12] MEDS: Furosemide 40 MG Tab PO SCH (07:45)
[2017-03-12] MEDS: Calcium Carbonate/Vitamin D3 1250 MG-200 Unit Tab PO SCH (07:46)
[2017-03-12] MEDS: Magnesium Chloride 64 MG Tab.ER PO SCH ×2 (07:46→18:01)
[2017-03-12] MEDS: Enoxaparin 40 MG/0.4 ML Syringe SUBCUT SCH (07:47)
[2017-03-12] MEDS: Lisinopril 10 MG Tab PO SCH (07:48)
[2017-03-12] MEDS: Enoxaparin 30 MG/0.3 ML Syringe SUBCUT SCH (07:48)
[2017-03-12] MEDS: Carvedilol 3.125 MG Tab PO SCH (07:49)
[2017-03-12] MEDS ORDERED: Carvedilol 3.125 MG Tab PO ONE (10:45)
[2017-03-12] MEDS: Warfarin 5 MG Tab PO SCH (13:07)
[2017-03-12] MEDS: Levofloxacin 500 MG Tab PO SCH (18:01)
[2017-03-12] MEDS: Carvedilol 6.25 MG Tab PO SCH (19:55)
[2017-03-12] MEDS: Mirtazapine 15 MG Tab PO SCH (19:56)
[2017-03-12] MEDS: Montelukast 10 MG Tab PO SCH (19:56)
[2017-03-12] MEDS: traZODone 50 MG Tab PO SCH (19:56)
[2017-03-12] MEDS: Temazepam 15 MG Cap PO SCH (22:30)
[2017-03-13] MEDS: Potassium Chloride 10 MEQ Tab.ER PO SCH (07:45)
[2017-03-13] MEDS: Magnesium Chloride 64 MG Tab.ER PO SCH ×2 (07:45→17:25)
[2017-03-13] MEDS: Multivitamin Tab PO SCH (07:46)
[2017-03-13] MEDS: Ferrous Sulfate 324 MG Tab.EC PO SCH (07:46)
[2017-03-13] MEDS: Furosemide 40 MG Tab PO SCH (07:46)
[2017-03-13] MEDS: Carvedilol 6.25 MG Tab PO SCH ×2 (07:47→19:43)
[2017-03-13] MEDS: Lisinopril 10 MG Tab PO SCH (07:47)
[2017-03-13] MEDS: Calcium Carbonate/Vitamin D3 1250 MG-200 Unit Tab PO SCH (07:48)
[2017-03-13] MEDS: Pantoprazole 40 MG Tab.CR PO SCH (07:48)
[2017-03-13] MEDS: Acetaminophen 325 MG Tab PO PRN ×3 (08:34→22:24)
[2017-03-13] MEDS: Warfarin 5 MG Tab PO SCH (12:39)
[2017-03-13] MEDS: Loperamide 2 MG Cap PO PRN (15:55)
[2017-03-13] MEDS: Levofloxacin 500 MG Tab PO SCH (17:25)
[2017-03-13] MEDS: traZODone 50 MG Tab PO SCH (19:42)
[2017-03-13] MEDS: Montelukast 10 MG Tab PO SCH (19:42)
[2017-03-13] MEDS: Mirtazapine 15 MG Tab PO SCH (19:43)
[2017-03-13] MEDS: Temazepam 15 MG Cap PO SCH (22:24)
[2017-03-14] MEDS: Multivitamin Tab PO SCH (07:38)
[2017-03-14] MEDS: Ferrous Sulfate 324 MG Tab.EC PO SCH (07:38)
[2017-03-14] MEDS: Pantoprazole 40 MG Tab.CR PO SCH (07:38)
[2017-03-14] MEDS: Furosemide 40 MG Tab PO SCH (07:38)
[2017-03-14] MEDS: Potassium Chloride 10 MEQ Tab.ER PO SCH (07:39)
[2017-03-14] MEDS: Calcium Carbonate/Vitamin D3 1250 MG-200 Unit Tab PO SCH (07:39)
[2017-03-14] MEDS: Magnesium Chloride 64 MG Tab.ER PO SCH ×2 (07:39→17:27)
[2017-03-14] MEDS: Lisinopril 10 MG Tab PO SCH (07:49)
[2017-03-14] MEDS: Carvedilol 6.25 MG Tab PO SCH ×2 (07:49→19:39)
[2017-03-14] MEDS: Acetaminophen 325 MG Tab PO PRN ×2 (07:50→22:34)
[2017-03-14] MEDS ORDERED: Furosemide 20 MG Tab PO ONE (11:30)
[2017-03-14] MEDS: Warfarin 5 MG Tab PO SCH (12:05)
--- NOTE | 2017-03-14 13:58 | PN ---
DATE: 03/14/2017 S: Josue has been doing quite well. Weights are down. Clinically looks like she is out of failure. I have put her on Coreg and JESS inhibitor now to go along with her Lasix and she is doing much better. INR was therapeutic two days ago. She has been off her Lovenox now. For the most part she has no big concern. She is progressing with physical therapy. We will likely plan on getting her home on Friday. She does have large bruise to the top of the right hand with what looks like blown vein on that hand with dilated area with a lot of bruising around. O: GENERAL: She is pleasant and cooperative lying in bed. NECK: Veins are flat. LUNGS: Sounds are clear without any overt signs of failure. Maybe minimal basilar crackles on the left. CARDIAC: Tones are irregular.. ABDOMEN: Soft and nontender. EXTREMITIES: Have scant edema most notably on the right side. ASSESSMENT: 1. CONGESTIVE HEART FAILURE IMPROVING. 2. CHRONIC ATRIAL FIBRILLATION. 3. SUPERFICIAL THROMBOPHLEBITIS. P: Continue with PT. She will finish her Levaquin today. No other changes at this time. Plan on titrating up her Coreg as an outpatient. We will ultimately have her see Cardiology given her ejection fraction of 35%. BRANDIN/KADIE /[id number]
[2017-03-14] MEDS: Montelukast 10 MG Tab PO SCH (19:38)
[2017-03-14] MEDS: traZODone 50 MG Tab PO SCH (19:38)
[2017-03-14] MEDS: Mirtazapine 15 MG Tab PO SCH (19:39)
[2017-03-14] MEDS: Temazepam 15 MG Cap PO SCH (22:34)
[2017-03-15] MEDS: Acetaminophen 325 MG Tab PO PRN ×4 (02:42→22:16)
[2017-03-15] MEDS: Pantoprazole 40 MG Tab.CR PO SCH (08:08)
[2017-03-15] MEDS: Carvedilol 6.25 MG Tab PO SCH ×2 (08:08→19:45)
[2017-03-15] MEDS: Calcium Carbonate/Vitamin D3 1250 MG-200 Unit Tab PO SCH (08:08)
[2017-03-15] MEDS: Furosemide 20 MG Tab PO SCH (08:09)
[2017-03-15] MEDS: Ferrous Sulfate 324 MG Tab.EC PO SCH (08:09)
[2017-03-15] MEDS: Potassium Chloride 10 MEQ Tab.ER PO SCH (08:09)
[2017-03-15] MEDS: Lisinopril 10 MG Tab PO SCH (08:10)
[2017-03-15] MEDS: Magnesium Chloride 64 MG Tab.ER PO SCH ×2 (08:10→17:45)
[2017-03-15] MEDS: Multivitamin Tab PO SCH (08:10)
[2017-03-15] MEDS: Warfarin 5 MG Tab PO SCH (11:58)
[2017-03-15] MEDS: traZODone 50 MG Tab PO SCH (19:45)
[2017-03-15] MEDS: Mirtazapine 15 MG Tab PO SCH (19:45)
[2017-03-15] MEDS: Montelukast 10 MG Tab PO SCH (19:46)
[2017-03-15] MEDS: Temazepam 15 MG Cap PO SCH (22:16)
[2017-03-16] MEDS: Acetaminophen 325 MG Tab PO PRN ×3 (05:04→22:00)
[2017-03-16] MEDS: Furosemide 20 MG Tab PO SCH (08:18)
[2017-03-16] MEDS: Magnesium Chloride 64 MG Tab.ER PO SCH ×2 (08:18→17:26)
[2017-03-16] MEDS: Ferrous Sulfate 324 MG Tab.EC PO SCH (08:18)
[2017-03-16] MEDS: Pantoprazole 40 MG Tab.CR PO SCH (08:18)
[2017-03-16] MEDS: Calcium Carbonate/Vitamin D3 1250 MG-200 Unit Tab PO SCH (08:18)
[2017-03-16] MEDS: Lisinopril 10 MG Tab PO SCH (08:19)
[2017-03-16] MEDS: Multivitamin Tab PO SCH (08:19)
[2017-03-16] MEDS: Potassium Chloride 10 MEQ Tab.ER PO SCH (08:19)
[2017-03-16] MEDS: Carvedilol 6.25 MG Tab PO SCH ×2 (08:20→19:50)
[2017-03-16] MEDS: Loperamide 2 MG Cap PO PRN (10:29)
[2017-03-16] MEDS: Warfarin 5 MG Tab PO SCH (12:16)
[2017-03-16] MEDS: traZODone 50 MG Tab PO SCH (19:49)
[2017-03-16] MEDS: Mirtazapine 15 MG Tab PO SCH (19:50)
[2017-03-16] MEDS: Montelukast 10 MG Tab PO SCH (19:50)
[2017-03-16] MEDS: Temazepam 15 MG Cap PO SCH (22:15)
[2017-03-17 07:19] LABS: CHLORIDE,CL 96 mEq/L (98-106); SODIUM,NA 134 mEq/L (136-145)
[2017-03-17 07:57] VITALS: BP 140/83
[2017-03-17] MEDS: Multivitamin Tab PO SCH (08:32)
[2017-03-17] MEDS: Magnesium Chloride 64 MG Tab.ER PO SCH (08:32)
[2017-03-17] MEDS: Potassium Chloride 10 MEQ Tab.ER PO SCH (08:32)
[2017-03-17] MEDS: Carvedilol 6.25 MG Tab PO SCH (08:32)
[2017-03-17] MEDS: Pantoprazole 40 MG Tab.CR PO SCH (08:33)
[2017-03-17] MEDS: Calcium Carbonate/Vitamin D3 1250 MG-200 Unit Tab PO SCH (08:33)
[2017-03-17] MEDS: Lisinopril 10 MG Tab PO SCH (08:33)
[2017-03-17] MEDS: Furosemide 20 MG Tab PO SCH (08:34)
[2017-03-17] MEDS: Ferrous Sulfate 324 MG Tab.EC PO SCH (08:35)
[2017-03-17] MEDS: Warfarin 5 MG Tab PO SCH (11:27)
[2017-03-17] MEDS: Acetaminophen 325 MG Tab PO PRN (14:26)
--- NOTE | 2017-03-18 09:15 | DISCH ---
FINAL DIAGNOSES: 1. Congestive heart failure. 2. Chronic atrial fibrillation. 3. Complete superficial thrombophlebitis. HISTORY OF PRESENT ILLNESS: Josue is an 81-year-old female, who was admitted to the hospital on the 06 of March secondary to increasing shortness of breath. She was then having CHF exacerbation. Dr. Candelaria did admit her and did adjust her diuretic. He did also start her on Coreg and lisinopril. She was transferred to [facility] on the 03/10 for strengthening and conditioning. She was also started on Coumadin secondary to DVT in the lower extremity. LABORATORY WORK: INR is currently at 2.88 from 1.90 on the . The proBNP was 2914 on the 03/12. CBC on the was grossly unremarkable. Panel eight on the showed a sodium 134, potassium was within normal limits at 4.1 and stable, creatinine is 1.0. Initial proBNP on admission was 8086, with the last on the of 3022. HOSPITAL COURSE: Josue did quite well during her hospital stay. Her weight did not improve. She looked like she was completely out of failure and was doing quite well. She was tolerating a [place] JESS inhibitor, lisinopril 10 mg daily. Lasix as she was doing a lot better on that compared to the torsemide. INR has been therapeutic. They were able to discontinue her Lovenox. Physical therapy did feel she is progressing and feels that the strength gomez she was the okay to go home. She did feel that she was getting a lot better again, does feel safe going home at this time. She does have a large bruise to top of the right hand secondary to possible hematoma. PHYSICAL EXAMINATION: GENERAL: Pleasant, cooperative female, she is sitting in the chair. Does not appear to be in any distress, appear to be in good spirits this morning. HEENT: Grossly unremarkable. NECK: Supple. No lymphadenopathy. Veins are flat. LUNGS: Clear to auscultation. Very minimal crackles noted in the bases. CARDIAC: Irregular rhythm. Regular rate. Systolic murmur noted. ABDOMEN: Soft and nontender. EXTREMITIES: No pedal edema is noted. PLAN: We will discharge her home today with outpatient physical therapy and also follow up with Dr. Candelaria next week. We will start her on her Coreg and an JESS inhibitor. We will give her refills of Coumadin as well. She will need an INR recheck next week. She is to continue on same dose presently, 5 mg daily. She will be set up to see Cardiology as well given the last ejection fraction of 35% on echocardiogram. Referral to Dr. Candelaria for followup possible appointment next week along with the INR prior. DISPOSITION: Home. LUDWIG/KADIE /[id number]
== END 2017-03-17 15:05 | disposition home or self-care (01) | DRG 301 ==
LOC: CC.MS 10:45 → UNDOADMIN 10:45 → UNDODISIN 03-17 15:05
PROVIDERS: ADMIT Nurse Practitioner Family; ATTEND Family Medicine
DX: I80.00 Phlebitis and thrombophlebitis of superficial vessels of unspecified lower extremity (principal); R53.1 Weakness; I50.9 Heart failure, unspecified; I48.2 Chronic atrial fibrillation; Z79.01 Long term (current) use of anticoagulants; Z66 Do not resuscitate; Z79.82 Long term (current) use of aspirin
CPT/HCPCS: 36415; 80048; 83880; 85610; 97110-GP; A9270-GY; J1650; J1956